=== PATIENT | male | born 1950 | race Caucasian/White ===

== ENCOUNTER → 2016-11-21 | Outpatient (CLI) | payer MEDICARE ==
--- NOTE | 2016-11-21 10:47 | CT ---
EXAMINATION TYPE: CT chest wo con DATE OF EXAM: 11/21/2016 9:52 AM COMPARISON: NONE HISTORY: Shortness of breath CT DLP: 207 mGycm, Automated exposure control for dose reduction was used. CONTRAST: None TECHNIQUE: Axial images were obtained at 1 mm thick sections at 10 mm intervals. This will limit po rtions of the examination which may not be visualized within the [id number]. Images were obtained in the prone and supine views. FINDINGS: Portion of the thyroid visualized is normal. There appears to be some mild pleural thickening which is stable in prone and supine views of the pos terior left lung base. Mild peribronchial thickening is present. Correlate for chronic bronchitis. No bronchiectasis is evident. There is some mild strandy fibrosis within the posterior left base presen t on both prone and supine views. Some mild compressive atelectasis within the dependent portion of t he lungs on supine view is present. No enlarged mediastinal or hilar adenopathy is evident. There are scattered small pretracheal lymph nodes. Some coronary artery calcification is noted. The ascending aorta diameter at the level of the main pulmonary artery is 3.2 cm. The main pulmonary artery diameter at the bifurcation is 2.[address] sections are obtained through the upper abdomen. Abdomen is essentially unremarkable. IMPRESSIONS: 1. Scarring or fibrosis within the posterior left lung base. 2. Mild pleural thickening posterior left lung base near the diaphragm. 3. Correlate for chronic bronchitis.
[2016-11-21 11:04] LABS: Basophils % (A) 0 %; CH 32.4; CHCM 34.6; Eosinophils # (A) 0.1 k/uL (0-0.7); Eosinophils % (A) 1 %; HDW 2.69; HGB 14.7 gm/dL (13.0-17.5); Luc # (Auto) 0.17; Luc % (Auto) 2; Lymphocytes # (A) 0.8 k/uL (1.0-4.8); Lymphocytes % (A) 8 %; MCH 31.4 pg (25.0-35.0); MCHC 33.4 g/dL (31.0-37.0); MCV 93.9 fL (80.0-100.0); Mean Platelet Volume 7.3; Monocytes # (A) 0.5 k/uL (0-1.0); Monocytes % (A) 5 %; Neutrophils # (A) 8.8 k/uL (1.3-7.7); Neutrophils % (A) 84 %; RBC 4.69 m/uL (4.30-5.90); RDW 13.2 % (11.5-15.5); WBC 10.5 k/uL (3.8-10.6); WBC (Perox) 10.65
[2016-11-21 11:23] LABS: ALT 31 U/L (21-72); AST 25 U/L (17-59); C Reactive Protein 11.6 mg/L (<10.0); Non-African American GFR(MDRD) >60 (>60 ml/min/1.73 sqM)
[2016-11-21 14:39] LABS: Erythrocyte Sedimentation Rate 39 mm/hr (0-15)
== END | disposition home or self-care (01) ==
LOC: RADCTMAIN 09:08
PROVIDERS: ATTEND Internal Medicine Rheumatology
DX: J84.10 Pulmonary fibrosis, unspecified (principal); M06.80 Other specified rheumatoid arthritis, unspecified site; J92.9 Pleural plaque without asbestos
CPT/HCPCS: 71250; 82565; 84450; 84460; 85025; 85652; 86140

== ENCOUNTER 2020-05-13 06:00 | Inpatient (IN) | payer MEDICARE ==
[2020-05-13] MEDS ORDERED: MORPHINE SULFATE 4 MG/ML SYRINGE IV STA (06:10)
[2020-05-13] MEDS ORDERED: SODIUM CHLORIDE 0.9% 1,000 ML IV STA (06:10)
[2020-05-13] MEDS ORDERED: SODIUM CHLORIDE 0.9% 500 ML 500 ML IV STA (06:10)
[2020-05-13] MEDS ORDERED: ONDANSETRON 4 MG/2 ML VIAL IVP STA (06:10)
--- NOTE | 2020-05-13 06:25 | ED ---
Abdominal Pain HPI - General Source: patient, RN notes reviewed Mode of arrival: ambulatory Limitations: no limitations <Larry Ortega - Last Filed: 05/13/20 07:51> <Hank Flor - Last Filed: 05/13/20 08:07> - General Chief Complaint: Abdominal Pain Stated Complaint: Lower abdominal pain Time Seen by Provider: 05/13/20 06:09 - History of Present Illness Initial Comments: 70-year-old male presents emergency Department chief complaint of left lower quadrant abdominal pain. Patient states has been increasing last few days. Patient did see PCP who placed him on ciprofloxacin and tramadol for pain control. Patient denies any known fever states that he's had some chills. Patient does admit to this nausea and dry heaving. No diarrhea no complaints patient states she's had decreased stool output no dysuria no hematuria patient's had prior hernia repair. Patient had a colonoscopy one month ago but she was told that he looked good. Patient has a chest pain or shortness of breath (Larry Ortega) - Related Data Home Medications Medication Instructions Recorded Confirmed Etanercept [Enbrel] 50 mg SQ FR 09/04/16 05/13/20 Folic Acid 1 mg PO DAILY 09/04/16 05/13/20 Simvastatin [Zocor] 20 mg PO HS 09/04/16 05/13/20 lisinopriL [Prinivil] 20 mg PO DAILY 09/04/16 05/13/20 metHOTREXate sodium [Methotrexate] 17.5 mg PO WE 09/04/16 05/13/20 Allergies Allergy/AdvReac Type Severity Reaction Status Date / Time Penicillins Allergy Rash/Hives Verified 05/13/20 08:03 Review of Systems ROS Other: All systems not noted in ROS Statement are negative. <Larry Ortega - Last Filed: 05/13/20 07:51> ROS Other: All systems not noted in ROS Statement are negative. <Hank Flor - Last Filed: 05/13/20 08:07> ROS Statement: Those systems with pertinent positive or pertinent negative responses have been documented in the HPI. Past Medical History Past Medical History: Hyperlipidemia, Rheumatoid Arthritis (RA) History of Any Multi-Drug Resistant Organisms: None Reported Past Surgical History: Hernia Repair Past Psychological History: Anxiety Smoking Status: Never smoker Past Alcohol Use History: None Reported Past Drug Use History: None Reported <Larry Ortega - Last Filed: 05/13/20 07:51> General Exam Limitations: no limitations General appearance: alert, in no apparent distress Head exam: Present: atraumatic, normocephalic, normal inspection Eye exam: Present: normal appearance, PERRL, EOMI. Absent: scleral icterus, conjunctival injection, periorbital swelling ENT exam: Present: normal exam, mucous membranes moist Neck exam: Present: normal inspection, full ROM. Absent: tenderness, meningism us, lymphadenopathy Respiratory exam: Present: normal lung sounds bilaterally. Absent: respiratory distress, wheezes, rales, rhonchi, stridor Cardiovascular Exam: Present: regular rate, normal rhythm, normal heart sounds. Absent: systolic murmur, diastolic murmur, rubs, gallop, clicks GI/Abdominal exam: Present: soft, tenderness (Moderate left lower quadrant), normal bowel sounds. Absent: distended, guarding, rebound, rigid Back exam: Absent: CVA tenderness (R), CVA tenderness (L) Neurological exam: Present: alert, oriented X3 Skin exam: Present: warm, dry, intact, normal color. Absent: rash <Larry Ortega - Last Filed: 05/13/20 07:51> Course <Hank Flor - Last Filed: 05/13/20 08:07> Vital Signs 05/13/20 05/13/20 06:02 07:01 Temperature 97.6 F 98 F Pulse Rate 82 77 Respiratory 18 17 Rate Blood Pressure 160/93 140/77 O2 Sat by Pulse 98 98 Oximetry - Reevaluation(s) Reevaluation #1: 05/13/20 08:06 PA supervision: I proceeded [id number] evaluation of the patient does present with complaints of abdominal pain left lower quadrant he was started on oral antibiotics 3 days ago for suspected diverticular disease. He states he is getting worse not better he states she's had this happen before. Patient will be admitted for inpatient treatment. I did discuss the case with Dr. Espinal. He will continue with IV antibiotics IV pain medication. (Hank Flor) Medical Decision Making - Lab Data Result diagrams: 05/13/20 06:18 05/13/20 06:18 <Larry Ortega - Last Filed: 05/13/20 07:51> - Lab Data Result diagrams: 05/13/20 06:18 05/13/20 06:18 <Hank Flor - Last Filed: 05/13/20 08:07> - Medical Decision Making CT shows evidence of diverticulitis. Patient's fell outpatient treatment on oral antibiotics. Patient pain is moderate. Patient will be admitted for IV antibiotics. Case discussed with Dr. Espinal. (Larry Ortega) - Lab Data Lab Results 05/13/20 05/13/20 05/13/20 Range/Units 06:18 06:18 06:18 WBC 10.4 (3.8-10.6) k/uL RBC 4.80 (4.30-5.90) m/uL Hgb 15.1 (13.0-17.5) gm/dL Hct 45.7 (39.0-53.0) % MCV 95.2 (80.0-100.0) fL MCH 31.5 (25.0-35.0) pg MCHC 33.1 (31.0-37.0) g/dL RDW 13.7 (11.5-15.5) % Plt Count 232 (150-450) k/uL Neutrophils % 81 % Lymphocytes % 7 % Monocytes % 6 % Eosinophils % 4 % Basophils % 1 % Neutrophils # 8.4 H (1.3-7.7) k/uL Lymphocytes # 0.7 L (1.0-4.8) k/uL Monocytes # 0.6 (0-1.0) k/uL Eosinophils # 0.4 (0-0.7) k/uL Basophils # 0.1 (0-0.2) k/uL Sodium 139 (137-145) mmol/L Potassium 4.4 (3.5-5.1) mmol/L Chloride 105 (98-107) mmol/L Carbon Dioxide 26 (22-30) mmol/L Anion Gap 8 mmol/L BUN 16 (9-20) mg/dL Creatinine 0.89 (0.66-1.25) mg/dL Est GFR (CKD-EPI)AfAm >90 (>60 ml/min/1.73 sqM) Est GFR (CKD-EPI)NonAf 86 (>60 ml/min/1.73 sqM) Glucose 117 H (74-99) mg/dL Plasma Lactic Acid Sonu (0.7-2.0) mmol/L Calcium 9.4 (8.4-10.2) mg/dL Total Bilirubin 1.2 (0.2-1.3) mg/dL AST 28 (17-59) U/L ALT 22 (4-49) U/L Alkaline Phosphatase 68 (38-126) U/L Total Protein 7.6 (6.3-8.2) g/dL Albumin 4.5 (3.5-5.0) g/dL Amylase 63 (30-110) U/L Lipase 58 (23-300) U/L Urine Color Light Yellow Urine Appearance Clear (Clear) Urine pH 7.0 (5.0-8.0) Ur Specific [place] 1.007 (1.001-1.035) Urine Protein Negative (Negative) Urine Glucose (UA) Negative (Negative) Urine Ketones Negative (Negative) Urine Blood Trace H (Negative) Urine Nitrite Negative (Negative) Urine Bilirubin Negative (Negative) Urine Urobilinogen <2.0 (<2.0) mg/dL Ur Leukocyte Esterase Negative (Negative) Urine RBC 1 (0-5) /hpf 05/13/20 Range/Units 06:18 WBC (3.8-10.6) k/uL RBC (4.30-5.90) m/uL Hgb (13.0-17.5) gm/dL Hct (39.0-53.0) % MCV (80.0-100.0) fL MCH (25.0-35.0) pg MCHC (31.0-37.0) g/dL RDW (11.5-15.5) % Plt Count (150-450) k/uL Neutrophils % % Lymphocytes % % Monocytes % % Eosinophils % % Basophils % % Neutrophils # (1.3-7.7) k/uL Lymphocytes # (1.0-4.8) k/uL Monocytes # (0-1.0) k/uL Eosinophils # (0-0.7) k/uL Basophils # (0-0.2) k/uL Sodium (137-145) mmol/L Potassium (3.5-5.1) mmol/L Chloride (98-107) mmol/L Carbon Dioxide (22-30) mmol/L Anion Gap mmol/L BUN (9-20) mg/dL Creatinine (0.66-1.25) mg/dL Est GFR (CKD-EPI)AfAm (>60 ml/min/1.73 sqM) Est GFR (CKD-EPI)NonAf (>60 ml/min/1.73 sqM) Glucose (74-99) mg/dL Plasma Lactic Acid Sonu 0.9 (0.7-2.0) mmol/L Calcium (8.4-10.2) mg/dL Total Bilirubin (0.2-1.3) mg/dL AST (17-59) U/L ALT (4-49) U/L Alkaline Phosphatase (38-126) U/L Total Protein (6.3-8.2) g/dL Albumin (3.5-5.0) g/dL Amylase (30-110) U/L Lipase (23-300) U/L Urine Color Urine Appearance (Clear) Urine pH (5.0-8.0) Ur Specific [place] (1.001-1.035) Urine Protein (Negative) Urine Glucose (UA) (Negative) Urine Ketones (Negative) Urine Blood (Negative) Urine Nitrite (Negative) Urine Bilirubin (Negative) Urine Urobilinogen (<2.0) mg/dL Ur Leukocyte Esterase (Negative) Urine RBC (0-5) /hpf Disposition <Larry Ortega - Last Filed: 05/13/20 07:51> <Hank Flor - Last Filed: 05/13/20 08:07> Clinical Impression: Acute diverticulitis, Failure of outpatient treatment Disposition: ADMITTED IP TO THIS [facility] Condition: Fair
[2020-05-13 06:30] LABS: Basophils # (A) 0.1 k/uL (0-0.2); Basophils % (A) 1 %; Eosinophils # (A) 0.4 k/uL (0-0.7); Eosinophils % (A) 4 %; HCT 45.7 % (39.0-53.0); HGB 15.1 gm/dL (13.0-17.5); Lymphocytes # (A) 0.7 k/uL (1.0-4.8); Lymphocytes % (A) 7 %; MCH 31.5 pg (25.0-35.0); MCHC 33.1 g/dL (31.0-37.0); MCV 95.2 fL (80.0-100.0); Monocytes # (A) 0.6 k/uL (0-1.0); Monocytes % (A) 6 %; Neutrophils # (A) 8.4 k/uL (1.3-7.7); Neutrophils % (A) 81 %; Platelet Count 232 k/uL (150-450); RDW 13.7 % (11.5-15.5); WBC 10.4 k/uL (3.8-10.6)
[2020-05-13 06:31] LABS: Appearance,Urine Clear (Clear); Bilirubin,Urine Negative (Negative); Blood,Urine Trace (Negative); Color,Urine Light Yellow; Glucose,Urine (UA) Negative (Negative); Ketones,Urine Negative (Negative); Leukocyte Esterase,Urine Negative (Negative); Nitrite,Urine Negative (Negative); Protein,Urine Negative (Negative); RBC,Urine 1 /hpf (0-5); Specific Gravity,Urine 1.007 (1.001-1.035); Urobilinogen,Urine <2.0 mg/dL (<2.0)
[2020-05-13 06:48] LABS: ALT 22 U/L (4-49); AST 28 U/L (17-59); African American GFR (CKD) >90 (>60 ml/min/1.73 sqM); Albumin 4.5 g/dL (3.5-5.0); Alkaline Phosphatase 68 U/L (38-126); Amylase 63 U/L (30-110); Anion Gap 8 mmol/L; Blood Urea Nitrogen 16 mg/dL (9-20); Calcium 9.4 mg/dL (8.4-10.2); Carbon Dioxide 26 mmol/L (22-30); Chloride 105 mmol/L (98-107); Glucose 117 mg/dL (74-99); Non-African American GFR(CKD) 86 (>60 ml/min/1.73 sqM); Potassium 4.4 mmol/L (3.5-5.1); Sodium 139 mmol/L (137-145); Total Bilirubin 1.2 mg/dL (0.2-1.3); Total Protein 7.6 g/dL (6.3-8.2)
--- NOTE | 2020-05-13 07:40 | CT ---
EXAMINATION TYPE: CT abdomen pelvis w con DATE OF EXAM: 05/13/2020 COMPARISON: CT chest 11/21/2016 HISTORY: 70-year-old male with lower abdominal pain. History of diverticulitis TECHNIQUE: Contiguous axial scanning of the abdomen and pelvis following administration of 100 ml Iso gato 300 IV contrast. Delayed images through the kidneys and coronal/sagittal reconstructions perform ed. CT DLP: 955.9 mGycm Automated exposure control for dose reduction was used. FINDINGS: Heart normal size without pericardial effusion. Unchanged smooth posterior left basilar pleural thickening. Some subpleural reticular changes and bola undglass probably adjacent scarring. Small hiatal hernia. No focal liver lesion or biliary ductal dilatation. Portal venous system is patent. Gallbladder is mildly hydropic and 4.1 cm wide but without any surrounding inflammatory change. 2.7 x 1.9 cm small oval nodule of the right adrenal gland is unchanged from 2017 suggesting a benign adrenal adenoma. Diffuse thickening of the left adrenal gland is also unchanged. Symmetric uptake and excretion of contrast from the kidneys. Spleen and pancreas appear within normal limits. Scattered [id number] atherosclerotic calcifications infrarenal abdominal aorta and iliac arteri es. Small fatty umbilical hernia. Mildly prominent fluid-filled small bowel loops left side of the abdomen measuring up to 2.5 cm. No d ilated small bowel, free fluid, or free air. Mild stool burden. There is diverticular change along the descending and sigmoid colon, greatest gabriel g the proximal to mid sigmoid. There is wall thickening and surrounding mild to moderate inflammatory fat stranding at the lower descending colon, axial image 52. The appearance of some annular thickening along the mid sigmoid colon, axial image 58 and 59. Bladder is urine distended. Prostate gland measures 4.5 cm wide. High riding right testicle. Left-viktoria ed pelvic phlebolith. No abnormal fluid collection the pelvis or pelvic lymphadenopathy. Bones: Degenerative changes at the hips and SI joints. Advanced degenerative disc disease and hypertr ophic facet arthropathy throughout the lumbar spine. IMPRESSION: 1. LEFT-SIDED COLONIC DIVERTICULOSIS WITH EXAM POSITIVE FOR ACUTE DIVERTICULITIS AT THE LEVEL OF THE LOWER DESCENDING COLON. MILD TO MODERATE ASSOCIATED INFLAMMATION. NO EVIDENCE FOR ABSCESS OR FREE AIR . 2. THE APPEARANCE OF SOME ANNULAR THICKENING ALONG THE MID SIGMOID COLON. THIS CAN BE SEEN WITH CHRON IC DIVERTICULITIS. DIRECT VISUALIZATION AFTER SUCCESSFUL TREATMENT TO EXCLUDE UNDERLYING NEOPLASM. 3. ASSOCIATED MILD SMALL BOWEL ILEUS. 4. MILDLY HYDROPIC GALLBLADDER PROBABLY RELATES TO FASTING STATE. IF RIGHT UPPER QUADRANT PAIN OR CON CERN FOR EARLY ACUTE CHOLECYSTITIS, FOLLOW-UP ULTRASOUND OR HIDA SCAN. 5. CHRONIC PLEURAL THICKENING AT THE LEFT BASE, SMALL HIATAL HERNIA, UNCHANGED 2.7 CM BENIGN RIGHT AD RENAL ADENOMA, AND ADVANCED DEGENERATIVE CHANGES THROUGHOUT THE LUMBAR SPINE.
[2020-05-13] MEDS ORDERED: metroNIDAZOLE-NS PMX 500 MG in SALINE 1 100ML.BAG IVPB STA (07:50)
[2020-05-13] MEDS ORDERED: LEVOFLOXACIN 750MG-D5W PMX 750 MG in DEXTROSE/WATER 1 150ML.BAG IVPB STA (07:50)
[2020-05-13] MEDS ORDERED: KETOROLAC 15 MG/ML 1 ML VIAL IVP STA (07:51)
[2020-05-13] MEDS ORDERED: MORPHINE SULFATE 4 MG/ML SYRINGE IV PRN (07:52)
[2020-05-13] MEDS ORDERED: NALOXONE 0.4 MG/ML 1 ML VIAL IV PRN (07:52)
[2020-05-13] MEDS ORDERED: ACETAMINOPHEN TAB 325 MG TAB PO PRN (07:52)
[2020-05-13] MEDS ORDERED: KETOROLAC 15 MG/ML 1 ML VIAL IVP PRN (07:52)
[2020-05-13] MEDS ORDERED: ONDANSETRON 4 MG/2 ML VIAL IVP PRN (07:52)
[2020-05-13] MEDS: SODIUM CHLORIDE 0.9% 1,000 ML IV SCH ×2 (09:58→22:39)
[2020-05-13] MEDS: METOPROLOL SUCCINATE (ER) 25 MG TAB.ER.24H PO SCH (12:18)
[2020-05-13] MEDS: amLODIPine 5 MG TAB PO SCH (12:19)
[2020-05-13] MEDS: ASPIRIN 81 MG PO SCH (12:19)
[2020-05-13] MEDS: FOLIC ACID 1 MG TAB PO SCH (12:19)
[2020-05-13] MEDS: lisinopriL 20 MG TAB PO SCH (12:19)
[2020-05-13] MEDS: CLOPIDOGREL 75 MG TAB PO SCH (12:19)
[2020-05-13] MEDS: FAMOTIDINE 20 MG TAB PO SCH ×2 (12:19→21:58)
[2020-05-13] MEDS: ENOXAPARIN 40 MG/0.4 ML SYRINGE SQ SCH (12:19)
[2020-05-13] MEDS: BUDESONIDE 0.5 MG/2 ML NEBU INHALATION SCH ×2 (15:16→19:39)
--- NOTE | 2020-05-13 16:20 | P.HPIM ---
History of Present Illness H&P Date: 05/13/20 Chief Complaint: abdominal pain History of presenting complaint: This is a pleasant 70-year-old patient of Dr. Tony Clark. Chronic stable medical conditions include hyperlipidemia, rheumatoid arthritis, anxiety, hypertension, coronary artery disease with stent over 3 years ago. Patient is put on Enbrel and methotrexate. Patient recently had a colonoscopy by Dr. April Woodruff mma was found to have diverticulosis. For about 10 days patient been having increasing left lower quadrant abdominal pain. No fever no chills. Diagnosed with diverticulitis by his family doctor was put on antibiotics. Has been having daily bowel movements. Has had about 7 days of antibiotics. Pain is progressively getting worse decided to come in. Computed tomography scan of the abdomen does show acute out of classes. No abscess or perforation. Patient's had at least 2 more attacks of the same in the past. Review of systems: GEN.: None EYES: None HEENT: None NECK: None RESPIRATORY: None CARDIOVASCULAR: None GASTROINTESTINAL: As above GENITOURINARY: None MUSCULOSKELETAL: Joint pains LYMPHATICS: None HEMATOLOGICAL: None PSYCHIATRY: None NEUROLOGICAL: None Past medical history to include: Coronary artery disease with stent in 2017, hypertension, hyperlipidemia, rheumatoid arthritis, diverticulitis Social history: Patient is employed at [employer], , smoked a pack a day for close to 40 years stopped about 10 years ago. No alcohol Physical examination: VITAL SIGNS: 97.6, 82, 18, 140 with 77, 98% room air GENERAL: BMI 24.3, laying in bed slightly anxious. EYES: Pupils equal. Conjunctiva normal. HEENT: External appearance of nose and ears normal, oral cavity grossly normal. NECK: JVD not raised; masses not palpable. HEART: First and second heart sounds are normal; no edema. LUNGS: Respiratory rate normal; clear to auscultation. ABDOMEN: Soft, left lower quadrant tenderness, no guarding rigidity, liver spleen not palpable, no masses palpable. PSYCH: Alert and oriented x3; mood and affect normal. MUSCULAR skeletal: Arthritis findings in the hands NEUROLOGICAL: Cranial nerves grossly intact; no facial asymmetry, power and sensation grossly intact. LYMPHATICS: No lymph nodes palpable in the axilla and neck INVESTIGATIONS, reviewed in the clinical context: White count 10.4 hemoglobin 15.1 increased neutrophils potassium 4.4 creatinine 0.89 Computed tomography scan of the abdomen pelvis-diverticular findings in the descending and sigmoid colon with surrounding mild to moderate inflammatory changes at the lower descending colon. No obvious evidence of abscess or free air. Assessment: -Acute sigmoid diverticulitis, with patient already having had to at least prior attacks. Patient been on oral antibiotics patient has failed the same. Patient's methotrexate and Enbrel both will be held -Chronic rheumatoid arthritis -Coronary artery disease prior history of stent in 2017 -Hypertension -Hyperlipidemia -Colonic diverticulosis -Anxiety not otherwise specified Plan: Patient be put on IV Zosyn and Flagyl IV fluids. Made nothing by mouth except for ice chips and home medications to continue. Since patient last stent was 3 years ago patient's Plavix could be held for right now. Care was discussed with the patient question also. Consult general surgery. Discussed with the patient of possibility of surgery down the road. Past Medical History Past Medical History: Hyperlipidemia, Rheumatoid Arthritis (RA) History of Any Multi-Drug Resistant Organisms: None Reported Past Surgical History: Hernia Repair Past Psychological History: Anxiety Smoking Status: Never smoker Past Alcohol Use History: None Reported Past Drug Use History: None Reported - Past Family History Father Family Medical History: Dementia Additional Family Medical History / Comment(s): Father of dementia. Mother Family Medical History: Cancer, Congestive Heart Failure (CHF) Additional Family Medical History / Comment(s): Colon cancer. Mother lived to be 84 yrs old. Medications and Allergies Home Medications Medication Instructions Recorded Confirmed Type Etanercept [Enbrel] 50 mg SQ FR 09/04/16 05/13/20 History Folic Acid 1 mg PO DAILY 09/04/16 05/13/20 History Simvastatin [Zocor] 20 mg PO HS 09/04/16 05/13/20 History lisinopriL [Prinivil] 20 mg PO DAILY 09/04/16 05/13/20 History metHOTREXate sodium [Methotrexate] 17.5 mg PO WE 09/04/16 05/13/20 History Aspirin EC [Ecotrin Low Dose] 81 mg PO DAILY 05/13/20 05/13/20 History Budesonide [Pulmicort] 0.5 mg INHALATION RT-BID 05/13/20 05/13/20 History Clopidogrel Bisulfate [Plavix] 75 mg PO DAILY 05/13/20 05/13/20 History Famotidine [Pepcid] 20 mg PO BID 05/13/20 05/13/20 History Metoprolol Succinate (ER) [Toprol 25 mg PO DAILY 05/13/20 05/13/20 History Xl] amLODIPine [Norvasc] 5 mg PO DAILY 05/13/20 05/13/20 History Allergies Allergy/AdvReac Type Severity Reaction Status Date / Time Penicillins Allergy Rash/Hives Verified 05/13/20 08:03 Physical Exam Vitals: Vital Signs Temp Pulse Pulse Resp BP BP Pulse Ox 05/13/20 09:51 98.1 F 66 16 120/61 94 L 05/13/20 08:10 98.3 F 78 18 127/70 97 05/13/20 07:01 98 F 77 17 140/77 98 05/13/20 06:02 97.6 F 82 18 160/93 98 Intake and Output 05/12/20 05/13/20 05/13/20 22:59 06:59 14:59 Other: Weight 72.575 kg Results CBC & Chem 7: 05/13/20 06:18 05/13/20 06:18 Labs: Abnormal Lab Results - Last 24 Hours (Table) 05/13/20 05/13/20 05/13/20 Range/Units 06:18 06:18 06:18 Neutrophils # 8.4 H (1.3-7.7) k/uL Lymphocytes # 0.7 L (1.0-4.8) k/uL Glucose 117 H (74-99) mg/dL Urine Blood Trace H (Negative)
[2020-05-13] MEDS ORDERED: ENOXAPARIN 40 MG/0.4 ML SYRINGE SQ SCH (16:30)
[2020-05-13] MEDS: metroNIDAZOLE-NS PMX 500 MG in SALINE 1 100ML.BAG IVPB SCH ×2 (16:46→23:11)
[2020-05-13] MEDS ORDERED: CEFEPIME 1 GM in SODIUM CHLORIDE 0.9% 50 ML IVPB ONE (18:00)
[2020-05-13] MEDS: ATORVASTATIN 10 MG TAB PO SCH (21:58)
[2020-05-14] MEDS: CEFEPIME 1 GM in SODIUM CHLORIDE 0.9% 50 ML IVPB SCH ×2 (05:21→18:11)
[2020-05-14 07:41] LABS: HCT 40.2 % (39.0-53.0); HGB 13.7 gm/dL (13.0-17.5); MCH 33.3 pg (25.0-35.0); MCHC 34.2 g/dL (31.0-37.0); MCV 97.4 fL (80.0-100.0); Mean Platelet Volume 7.3; Platelet Count 174 k/uL (150-450); RBC 4.13 m/uL (4.30-5.90); RDW 13.7 % (11.5-15.5); WBC 5.6 k/uL (3.8-10.6)
[2020-05-14] MEDS: BUDESONIDE 0.5 MG/2 ML NEBU INHALATION SCH ×2 (08:07→20:07)
[2020-05-14] MEDS: metroNIDAZOLE-NS PMX 500 MG in SALINE 1 100ML.BAG IVPB SCH ×3 (08:55→23:38)
[2020-05-14] MEDS: ASPIRIN 81 MG PO SCH (08:58)
[2020-05-14] MEDS: CLOPIDOGREL 75 MG TAB PO SCH (08:58)
[2020-05-14] MEDS: lisinopriL 20 MG TAB PO SCH (08:58)
[2020-05-14] MEDS: ENOXAPARIN 40 MG/0.4 ML SYRINGE SQ SCH (08:58)
[2020-05-14] MEDS: FAMOTIDINE 20 MG TAB PO SCH ×2 (08:58→20:42)
[2020-05-14] MEDS: FOLIC ACID 1 MG TAB PO SCH (08:58)
[2020-05-14] MEDS: METOPROLOL SUCCINATE (ER) 25 MG TAB.ER.24H PO SCH (08:58)
[2020-05-14] MEDS: amLODIPine 5 MG TAB PO SCH (08:58)
[2020-05-14] MEDS ORDERED: LEVOFLOXACIN 750MG-D5W PMX 750 MG in DEXTROSE/WATER 1 150ML.BAG IVPB SCH (09:00)
[2020-05-14] MEDS: SODIUM CHLORIDE 0.9% 1,000 ML IV SCH ×2 (11:27→23:39)
[2020-05-14 11:42] VITALS: BMI 24.3
--- NOTE | 2020-05-14 11:55 | P.GSCN ---
History of Present Illness Consult date: 05/14/20 History of present illness: CHIEF COMPLAINT: Left lower quadrant abdominal pain HISTORY OF PRESENT ILLNESS: This is a 70-year-old male with a known history of diverticulosis, hyperlipidemia, hypertension, rheumatoid arthritis, coronary artery disease previous cardiac testing about 3 years ago. He is on aspirin and Plavix. Patient reports about a week ago he started having left lower quadrant abdominal pain. He went to see his primary care physician who did place him on Cipro. Patient took 2 days of antibiotics with no significant improvement improvement in his abdominal pain. He does report eating a lot of popcorn couple weeks ago. He denies any nausea or vomiting. Reports having bowel movements. Denies any fever chills or sweats. Patient had computed tomography scan of abdomen and pelvis showing left-sided colonic diverticulosis with acute diverticulitis at the level of the lower descending colon. No evidence of abscess or free air. We've been consulted in regards to patient's diverticulitis. Patient did have a colonoscopy [address] Medina per patient there is no evidence of any polyps. And he does have known diverticulosis. PAST MEDICAL HISTORY: See list. PAST SURGICAL HISTORY: See list. MEDICATIONS: See list. ALLERGIES: See list. SOCIAL HISTORY: No illicit drug use. REVIEW OF SYSTEMS: CONSTITUTIONAL: Denies fever or chills. HEENT: Denies blurred vision, vision changes, or eye pain. Denies hemoptysis ENDOCRINE: Denies heat or cold intolerance. CARDIOVASCULAR: Denies chest pain or pressure. RESPIRATORY: No shortness of breath. GASTROINTESTINAL: Denies abdominal pain. Denies nausea or vomiting. NEURO: Denies history of seizures. PSYCH: No depression or suicidal ideation HEMATOLOGIC: Denies bleeding disorders. LYMPHATIC: The patient denies any lumps and bumps around the neck. GENITOURINARY: Denies any blood in urine or increased urinary frequency. MUSCULOSKELETAL: Denies myalgias. Denies joint swelling. Denies decreased range of motion beyond patients baseline. SKIN: Denies pruitis. Denies rash. PHYSICAL EXAM: VITAL SIGNS: Reviewed GENERAL: Well-developed in no acute distress. HEENT: No sclera icterus. Extraocular movements grossly intact. Moist buccal mucosa. Head is atraumatic, normocephalic. Hears conversational speech. No nasal drainage. NECK: Supple without lymphadenopathy. CHEST: Non-labored respirations and equal bilateral excursions. CARDIOVASCULAR: Palpable 2+ radial pulses. ABDOMEN: Soft. Nondistended. Nontender MUSCULOSKELETAL: No clubbing or cyanosis. NEUROLOGIC: No focal or lateralizing signs. Cranial nerves II through XII grossly intact. PSYCH: Appropriate affect. Alert and oriented to person, place and time. SKIN: Well perfused. Good skin turgor. LABORATORY DATA: WBC 5.6 hemoglobin 13.7 platelets 174 lipase 58 ALT 22 AST 28 IMAGING: Computed tomography scan of the abdomen and pelvis with left-sided colonic diverticulosis with exam positive for acute diverticulitis at the level of the lower descending colon. Mild to moderate associated inflammation. No evidence for abscess or free air. The appearance of some annular thickening along the mid sigmoid colon. This can be seen with chronic diverticulitis. Mildly hypertrophic gallbladder probably relates to fasting state. Small hiatal hernia unchanged 2.7 cm. ASSESSMENT: 1. Acute diverticulitis of the lower descending colon likely secondary to eating popcorn 2. History of diverticulosis 3. Essential hypertension 4. Coronary artery disease with cardiac stent history 5. Rheumatoid arthritis 6. Hyperlipidemia PLAN: -Continue antibiotics -Start patient on clear liquid diet. Patient to advance diet slowly. He is continue on a liquid diet over the weekend. He can start eating a regular food such as sandwiches on Sunday. -Patient to follow-up with Dr. Pacheco in the office on May 27 Physician Hiv/Aids Care Nurse note has been reviewed by physician. Signing provider agrees with the documented findings, assessment, and plan of care. Past Medical History Past Medical History: Hyperlipidemia, Rheumatoid Arthritis (RA) Additional Past Medical History / Comment(s): Rheumatoid arthritis with chronic generalized pain, diverticulitis. History of Any Multi-Drug Resistant Organisms: None Reported Past Surgical History: Hernia Repair Additional Past Surgical History / Comment(s): Colonoscopies, PCI with stent at [facility] in 2017, bilateral inguinal hernia repairs. Past Anesthesia/Blood Transfusion Reactions: No Reported Reaction Date of Last Stent Placement:: 2016 Past Psychological History: Anxiety Smoking Status: Never smoker Past Alcohol Use History: None Reported Past Drug Use History: None Reported - Past Family History Father Family Medical History: Dementia Additional Family Medical History / Comment(s): Father of dementia. Mother Family Medical History: Cancer, Congestive Heart Failure (CHF) Additional Family Medical History / Comment(s): Colon cancer. Mother lived to be 84 yrs old. Medications and Allergies Home Medications Medication Instructions Recorded Confirmed Type Etanercept [Enbrel] 50 mg SQ FR 09/04/16 05/13/20 History Folic Acid 1 mg PO DAILY 09/04/16 05/13/20 History Simvastatin [Zocor] 20 mg PO HS 09/04/16 05/13/20 History lisinopriL [Prinivil] 20 mg PO DAILY 09/04/16 05/13/20 History metHOTREXate sodium [Methotrexate] 17.5 mg PO WE 09/04/16 05/13/20 History Aspirin EC [Ecotrin Low Dose] 81 mg PO DAILY 05/13/20 05/13/20 History Budesonide [Pulmicort] 0.5 mg INHALATION RT-BID 05/13/20 05/13/20 History Clopidogrel Bisulfate [Plavix] 75 mg PO DAILY 05/13/20 05/13/20 History Famotidine [Pepcid] 20 mg PO BID 05/13/20 05/13/20 History Metoprolol Succinate (ER) [Toprol 25 mg PO DAILY 05/13/20 05/13/20 History Xl] amLODIPine [Norvasc] 5 mg PO DAILY 05/13/20 05/13/20 History Allergies Allergy/AdvReac Type Severity Reaction Status Date / Time Penicillins Allergy Rash/Hives Verified 05/13/20 08:03 Surgical - Exam Vital Signs Temp Pulse Resp BP Pulse Ox 97.6 F 82 18 160/93 98 05/13/20 06:02 05/13/20 06:02 05/13/20 06:02 05/13/20 06:02 05/13/20 06:02 Results - Labs 05/14/20 07:10 05/13/20 06:18 Abnormal Lab Results - Last 24 Hours (Table) 05/14/20 Range/Units 07:10 RBC 4.13 L (4.30-5.90) m/uL Microbiology - Last 24 Hours (Table) 05/13/20 08:16 Blood Culture - Preliminary Blood No Growth after 24 hours
--- NOTE | 2020-05-14 20:20 | P.PN ---
Progress Note - Text Progress Note Date: 05/14/20 Chief Complaint: abdominal pain History of presenting complaint: This is a pleasant 70-year-old patient of Dr. Tony Clark. Chronic stable medical conditions include hyperlipidemia, rheumatoid arthritis, anxiety, hypertension, coronary artery disease with stent over 3 years ago. Patient is put on Enbrel and methotrexate. Patient recently had a colonoscopy by Dr. April Medina was found to have diverticulosis. For about 10 days patient been having increasing left lower quadrant abdominal pain. No fever no chills. Diagnosed with diverticulitis by his family doctor was put on antibiotics. Has been having daily bowel movements. Has had about 7 days of antibiotics. Pain is progressively getting worse decided to come in. Computed tomography scan of the abdomen does show acute out of classes. No abscess or perforation. Patient's had at least 2 more attacks of the same in the past. Admitted with acute sigmoid diverticulitis. Started on IV cefepime and Flagyl. Initially made nothing by mouth. Today-feeling better. No nausea vomiting. Sitting up in a chair. On IV antibiotics. Started on clear liquids this morning. Review of systems: Was done for constitutional, cardiovascular, GI, pulmonary. relevant finding as above Active Medications Acetaminophen (Tylenol Tab) 650 mg PO Q6HR PRN PRN Reason: Mild Pain or Fever > 100.5 Amlodipine Besylate (Norvasc) 5 mg PO DAILY [facility] Last Admin: 05/14/20 08:58 Dose: 5 mg Documented by: Aspirin (Aspirin) 81 mg PO DAILY [facility] Last Admin: 05/14/20 08:58 Dose: 81 mg Documented by: Atorvastatin Calcium (Lipitor) 10 mg PO HS [facility] Last Admin: 05/13/20 21:58 Dose: 10 mg Documented by: Budesonide (Pulmicort) 0.5 mg INHALATION RT-BID [facility] Last Admin: 05/14/20 20:07 Dose: 0.5 mg Documented by: Clopidogrel Bisulfate (Plavix) 75 mg PO DAILY [facility] Last Admin: 05/14/20 08:58 Dose: 75 mg Documented by: Enoxaparin Sodium (Lovenox) 40 mg SQ DAILY [facility] Last Admin: 05/14/20 08:58 Dose: 40 mg Documented by: Famotidine (Pepcid) 20 mg PO BID [facility] Last Admin: 05/14/20 08:58 Dose: 20 mg Documented by: Folic Acid (Folic Acid) 1 mg PO DAILY [facility] Last Admin: 05/14/20 08:58 Dose: 1 mg Documented by: Metronidazole 500 mg/ IV (Solution) 100 mls @ 100 mls/hr IVPB Q8HR [facility] Last Admin: 05/14/20 16:18 Dose: 100 mls/hr Documented by: Sodium Chloride (Saline 0.9%) 1,000 mls @ 75 mls/hr IV .[id number] [facility] Last Admin: 05/14/20 11:27 Dose: 75 mls/hr Documented by: Cefepime HCl 1 gm/ Sodium (Chloride) 50 mls @ 12.5 mls/hr IVPB Q12H [facility] Last Admin: 05/14/20 18:11 Dose: 12.5 mls/hr Documented by: Ketorolac Tromethamine (Toradol) 15 mg IVP Q6HR PRN PRN Reason: Moderate Pain Stop: 05/16/20 07:53 Lisinopril (Zestril) 20 mg PO DAILY [facility] Last Admin: 05/14/20 08:58 Dose: 20 mg Documented by: Metoprolol Succinate (Toprol Xl) 25 mg PO DAILY [facility] Last Admin: 05/14/20 08:58 Dose: 25 mg Documented by: Morphine Sulfate (Morphine Sulfate (Inj)) 4 mg IV Q4HR PRN PRN Reason: Severe Pain Naloxone HCl (Narcan) 0.2 mg IV Q2M PRN PRN Reason: Opioid Reversal Ondansetron HCl (Zofran) 4 mg IVP Q8HR PRN PRN Reason: Nausea And Vomiting Physical examination: VITAL SIGNS: 97.9, 64, 17, 121/63, 96% room air GENERAL: Sitting on a chair, comfortable EYES: Pupils equal. Conjunctiva normal. HEENT: External appearance of nose and ears normal, oral cavity grossly normal. NECK: JVD not raised; masses not palpable. HEART: First and second heart sounds are normal; no edema. LUNGS: Respiratory rate normal; clear to auscultation. ABDOMEN: Soft, minimal left lower quadrant tenderness, no guarding rigidity, liver spleen not palpable, no masses palpable. PSYCH: Alert and oriented x3; mood and affect normal. MUSCULAR skeletal: Arthritis findings in the hands INVESTIGATIONS, reviewed in the clinical context: White count 5.6 hemoglobin 13.7 Previous testing White count 10.4 hemoglobin 15.1 increased neutrophils potassium 4.4 creatinine 0.89 Computed tomography scan of the abdomen pelvis-diverticular findings in the descending and sigmoid colon with surrounding mild to moderate inflammatory changes at the lower descending colon. No obvious evidence of abscess or free air. Assessment: -Acute sigmoid diverticulitis, with patient already having had to at least prior attacks. Patient been on oral antibiotics patient has failed the same. Patient's methotrexate and Enbrel both will be held-improving -Chronic rheumatoid arthritis -Coronary artery disease prior history of stent in 2017 -Hypertension -Hyperlipidemia -Colonic diverticulosis -Anxiety not otherwise specified Plan: Continue with IV cefepime and Flagyl. Advance to full liquid. Diet to be advanced as tolerated.. Discussed with the patient. Hopefully discharge in next 24 hours.
[2020-05-14] MEDS: ATORVASTATIN 10 MG TAB PO SCH (20:42)
[2020-05-15] MEDS: CEFEPIME 1 GM in SODIUM CHLORIDE 0.9% 50 ML IVPB SCH (06:22)
[2020-05-15 07:20] LABS: Glucose,Whole Blood 100 mg/dL (75-99)
[2020-05-15 07:24] VITALS: BP 168/81; RESP 14; TEMP 97.9
[2020-05-15] MEDS: BUDESONIDE 0.5 MG/2 ML NEBU INHALATION SCH (07:44)
[2020-05-15 07:58] VITALS: PULSE 76
[2020-05-15] MEDS: lisinopriL 20 MG TAB PO SCH (08:22)
[2020-05-15] MEDS: CLOPIDOGREL 75 MG TAB PO SCH (08:22)
[2020-05-15] MEDS: amLODIPine 5 MG TAB PO SCH (08:22)
[2020-05-15] MEDS: METOPROLOL SUCCINATE (ER) 25 MG TAB.ER.24H PO SCH (08:22)
[2020-05-15] MEDS: FOLIC ACID 1 MG TAB PO SCH (08:22)
[2020-05-15] MEDS: FAMOTIDINE 20 MG TAB PO SCH (08:22)
[2020-05-15] MEDS: metroNIDAZOLE-NS PMX 500 MG in SALINE 1 100ML.BAG IVPB SCH (08:22)
[2020-05-15] MEDS: ASPIRIN 81 MG PO SCH (08:22)
[2020-05-15] MEDS: ENOXAPARIN 40 MG/0.4 ML SYRINGE SQ SCH (08:23)
--- NOTE | 2020-05-15 12:20 | P.PN ---
Subjective Progress Note Date: 05/15/20 Principal diagnosis: Acute diverticulitis Patient doing well today. No labs from today. He is tolerating his diet. He is having bowel function. He would like to go home. Objective - Vital Signs Vital signs: Vital Signs Temp 97.9 F 05/15/20 07:23 Pulse 76 05/15/20 07:55 Resp 14 05/15/20 07:23 BP 168/81 05/15/20 07:23 Pulse Ox 97 05/15/20 07:23 Intake & Output 05/14/20 05/15/20 05/15/20 18:59 06:59 18:59 Intake Total 600 Balance 600 Weight 72.575 kg Intake: IV 450 Sodium Chloride 0.9% 1, 450 000 ml @ 75 mls/hr IV . [id number] [facility] Rx#:[id number] Intake, IV Titration 150 Amount Cefepime 1 gm In Sodium 50 Chloride 0.9% 50 ml @ 100 mls/hr IVPB ONCE ONE Rx# :[id number] metroNIDAZOLE-NS PMX 500 100 mg In Saline 1 100ml.bag @ 100 mls/hr IVPB Q8HR [facility] Rx#:[id number] Other: Voiding Method Toilet Toilet # Voids 2 - Exam Abdomen: Soft, nontender, nondistended - Labs CBC & Chem 7: 05/14/20 07:10 05/13/20 06:18 Labs: Abnormal Lab Results - Last 24 Hours (Table) 05/15/20 Range/Units 07:17 POC Glucose (mg/dL) 100 H (75-99) mg/dL Microbiology - Last 24 Hours (Table) 05/13/20 08:16 Blood Culture - Preliminary Blood No Growth after 48 hours Assessment and Plan (1) Acute diverticulitis Narrative/Plan: Clinically patient improving. Tolerating diet. May discharge on oral antibiotics. Follow-up outpatient. Current Visit: Yes Status: Acute Code(s): K57.92 - DVTRCLI OF INTEST, PART UNSP, W/O PERF OR ABSCESS W/O BLEED SNOMED Code(s): 083328181
--- NOTE | 2020-05-15 21:02 | P.DS ---
Providers Date of admission: 05/13/20 07:50 Expected date of discharge: 05/15/20 Attending physician: Dallas Espinal Consults: 05/13/20 16:21 Consult Physician Routine Consulting Provider: Ana Pacheco Consult Reason/Comments: acute diverticulitis Do you want consulting provider notified?: Yes Primary care physician: Tony Clark MD Hospital Course: Chief Complaint: abdominal pain History of presenting complaint: This is a pleasant 70-year-old patient of Dr. Tony Clark. Chronic stable medical conditions include hyperlipidemia, rheumatoid arthritis, anxiety, hypertension, coronary artery disease with stent over 3 years ago. Patient is put on Enbrel and methotrexate. Patient recently had a colonoscopy by Dr. April Medina was found to have diverticulosis. For about 10 days patient been having increasing left lower quadrant abdominal pain. No fever no chills. Diagnosed with diverticulitis by his family doctor was put on antibiotics. Has been having daily bowel movements. Has had about 7 days of antibiotics. Pain is progressively getting worse decided to come in. Computed tomography scan of the abdomen does show acute out of classes. No abscess or perforation. Patient's had at least 2 more attacks of the same in the past. Admitted with acute sigmoid diverticulitis. Started on IV cefepime and Flagyl. Initially made nothing by mouth. Today-patient tolerated Augmentin this morning. No further pain. No nausea vomiting. Had bowel movement. Up and about. Care was discussed at length with her. Medications follow-up diet etc. was discussed. Possibility of surgery was also discussed. Will follow up with Dr. Cabrera as an outpatient. Patient to continue to hold methotrexate and Enbrel until follow-up with his hand assembler in a week's time. Discussion and discharge planning more than 35 minutes Consultation: Dr. Cabrera from general surgery Physical examination: VITAL SIGNS: 97.9, 14, 80, 09/25/1980, 97% room air GENERAL: Propped up comfortable EYES: Pupils equal. Conjunctiva normal. HEENT: External appearance of nose and ears normal, oral cavity grossly normal. NECK: JVD not raised; masses not palpable. HEART: First and second heart sounds are normal; no edema. LUNGS: Respiratory rate normal; clear to auscultation. ABDOMEN: Soft, no tenderness, no guarding rigidity, liver spleen not palpable, no masses palpable. PSYCH: Alert and oriented x3; mood and affect normal. MUSCULAR skeletal: Arthritis findings in the hands INVESTIGATIONS, reviewed in the clinical context: White count 5.6 hemoglobin 13.7 Previous testing White count 10.4 hemoglobin 15.1 increased neutrophils potassium 4.4 creatinine 0.89 Computed tomography scan of the abdomen pelvis-diverticular findings in the descending and sigmoid colon with surrounding mild to moderate inflammatory changes at the lower descending colon. No obvious evidence of abscess or free air. Assessment: -Acute sigmoid diverticulitis, with patient already having had to at least 2 prior attacks. Failed outpatient antibiotics.. Patient's methotrexate and Enbrel both will be held-improving -Chronic rheumatoid arthritis -Coronary artery disease prior history of stent in 2017 -Hypertension -Hyperlipidemia -Colonic diverticulosis -Anxiety not otherwise specified Disposition: Home Patient Condition at Discharge: Stable Plan - Discharge Summary Discharge Rx Participant: No New Discharge Prescriptions: New metroNIDAZOLE [Flagyl] 500 mg PO QID #40 tab Levofloxacin [Levaquin] 750 mg PO DAILY #10 tab Continue Simvastatin [Zocor] 20 mg PO HS metHOTREXate sodium [Methotrexate] 17.5 mg PO WE lisinopriL [Prinivil] 20 mg PO DAILY Folic Acid 1 mg PO DAILY Etanercept [Enbrel] 50 mg SQ FR Metoprolol Succinate (ER) [Toprol XL] 25 mg PO DAILY Clopidogrel Bisulfate [Plavix] 75 mg PO DAILY Budesonide [Pulmicort] 0.5 mg INHALATION RT-BID Aspirin EC [Ecotrin Low Dose] 81 mg PO DAILY amLODIPine [Norvasc] 5 mg PO DAILY Famotidine [Pepcid] 20 mg PO BID Discharge Medication List Etanercept [Enbrel] 50 mg SQ FR 09/04/16 [History] Folic Acid 1 mg PO DAILY 09/04/16 [History] Simvastatin [Zocor] 20 mg PO HS 09/04/16 [History] lisinopriL [Prinivil] 20 mg PO DAILY 09/04/16 [History] metHOTREXate sodium [Methotrexate] 17.5 mg PO WE 09/04/16 [History] Aspirin EC [Ecotrin Low Dose] 81 mg PO DAILY 05/13/20 [History] Budesonide [Pulmicort] 0.5 mg INHALATION RT-BID 05/13/20 [History] Clopidogrel Bisulfate [Plavix] 75 mg PO DAILY 05/13/20 [History] Famotidine [Pepcid] 20 mg PO BID 05/13/20 [History] Metoprolol Succinate (ER) [Toprol XL] 25 mg PO DAILY 05/13/20 [History] amLODIPine [Norvasc] 5 mg PO DAILY 05/13/20 [History] Levofloxacin [Levaquin] 750 mg PO DAILY #10 tab 05/15/20 [Rx] metroNIDAZOLE [Flagyl] 500 mg PO QID #40 tab 05/15/20 [Rx] Follow up Appointment(s)/Referral(s): Tony Clark MD [Primary Care Provider] - 1-2 days Ana Pacheco MD [STAFF PHYSICIAN] - 05/27/20 Archana Stokes DO [REFERRING] - 10 Days Patient Instructions/Handouts: Metronidazole (By mouth), Levofloxacin (By mouth), Diverticulitis (DC), Soft Diet (DC), Diet for Stomach Ulcers and Gastritis (ED), Full Liquid Diet (DC) Activity/Diet/Wound Care/Special Instructions: hold enbrel and methotrexate till 2 weeks full liquid diet advance to soft bland cbc/cmp - 5 days Discharge Disposition: HOME SELF-CARE
== END 2020-05-15 13:45 | disposition home or self-care (01) | DRG 392 ==
LOC: EC 06:00 → 6NMEDSUR 07:50
PROVIDERS: ADMIT Hospitalist; ATTEND Hospitalist
DX: K57.32 Diverticulitis of large intestine without perforation or abscess without bleeding (principal); I25.10 Atherosclerotic heart disease of native coronary artery without angina pectoris; I10 Essential (primary) hypertension; F41.9 Anxiety disorder, unspecified; E78.5 Hyperlipidemia, unspecified; M06.9 Rheumatoid arthritis, unspecified; F17.200 Nicotine dependence, unspecified, uncomplicated; Z79.899 Other long term (current) drug therapy; Z88.0 Allergy status to penicillin; Z98.890 Other specified postprocedural states; Z95.5 Presence of coronary angioplasty implant and graft; Z82.49 Family history of ischemic heart disease and other diseases of the circulatory system; Z80.0 Family history of malignant neoplasm of digestive organs; Z81.8 Family history of other mental and behavioral disorders; Z79.02 Long term (current) use of antithrombotics/antiplatelets; Z79.82 Long term (current) use of aspirin
CPT/HCPCS: 36415; 74177; 80053; 81001; 82150; 83605; 83690; 85025; 85027; 87040; 94640; 96361; 96374; 96375; 99285

== ENCOUNTER → 2021-02-01 | Outpatient (CLI) | payer MEDICARE ==
[2021-02-01 12:01] LABS: African American GFR (CKD) >90 (>60 ml/min/1.73 sqM); Blood Urea Nitrogen 12 mg/dL (9-20); Non-African American GFR(CKD) 90 (>60 ml/min/1.73 sqM)
--- NOTE | 2021-02-01 13:36 | CT ---
EXAMINATION TYPE: CT abdomen pelvis w con DATE OF EXAM: 02/01/2021 COMPARISON: 05/13/2020 HISTORY: Follow up for prostate cancer. CT DLP: 1181 mGycm CONTRAST: CT scan of the abdomen and pelvis is performed with Oral Contrast and with IV Contrast, patient injec nay with 100ml mL of Isovue 300. FINDINGS: LUNG BASES-: No visible nodule. No infiltrate. Stable pleural thickening left lower lobe. All LIVER/GB: No calcified gallstones. No space occupying hepatic lesion. Biliary tree is of normal ca liber. PANCREAS: No inflammation. No distinct mass. SPLEEN: No splenic enlargement. No lesion seen. ADRENALS: Right adrenal adenoma is stable. No thickening. KIDNEYS/BLADDER: No hydronephrosis. No nephrolithiasis. No distinct renal mass. Urinary bladder g rossly unremarkable. BOWEL: Normal appendix. Normal bowel caliber. No inflammation. Severe sigmoid diverticulosis. Wall thickening noted of the sigmoid colon. Consider direct visualization to exclude neoplasm. GENITAL ORGANS: Prostate planes are intact. Glandular calcifications noted. LYMPH NODES: No greater than 1cm abdominal or pelvic lymph nodes are appreciated. AORTA: No significant abnormality. OSSEOUS STRUCTURES: Severe multilevel degenerative disc disease and spondylosis. OTHER: No significant additional abnormality is seen. IMPRESSION: 1. Severe sigmoid diverticulosis. Wall thickening noted of the sigmoid colon. Consider direct visuali zation to exclude neoplasm. 2. No evidence for prostate metastatic disease at this time.
--- NOTE | 2021-02-01 17:37 | NM ---
EXAMINATION TYPE: NM bone scan whole body DATE OF EXAM: 02/01/2021 COMPARISON: CT same date, CT 05/13/2020 HISTORY: Prostate cancer, C 61 Delayed whole-body scanning was performed following the injection of 25.6 mCi Tc 99m MDP. Images acq uired 3 hours post injection. FINDINGS: There is normal soft tissue uptake. Uptake within the feet, ankles, knees, shoulders, wrists and hand s, elbows, spine and sternoclavicular joints is likely degenerative. Uptake within the mandible is li zachary due to periodontal disease. There is some uptake seen within the mastoid region on the right. On axial image #[address] scan there is a sclerotic focus which is subcentimeter in size which may be new. IMPRESSION: No convincing metastatic uptake. Correlate for possible mastoiditis. Follow-up recommended for possib le left ilium sclerotic lesion.
== END | disposition home or self-care (01) ==
LOC: RADNMMAIN 10:54
PROVIDERS: ATTEND Urology
DX: C61 Malignant neoplasm of prostate (principal); K57.30 Diverticulosis of large intestine without perforation or abscess without bleeding
CPT/HCPCS: 82565; 84520; 74177; 36415; 78306; A9503; Q9967

== ENCOUNTER → 2021-03-01 | Outpatient (CLI) | payer MEDICARE ==
[2021-03-01 12:40] LABS: Basophils % (A) 1 %; Eosinophils # (A) 0.3 k/uL (0-0.7); Eosinophils % (A) 4 %; HCT 39.1 % (39.0-53.0); HGB 13.8 gm/dL (13.0-17.5); Lymphocytes # (A) 0.9 k/uL (1.0-4.8); Lymphocytes % (A) 14 %; MCH 32.8 pg (25.0-35.0); MCHC 35.3 g/dL (31.0-37.0); MCV 92.9 fL (80.0-100.0); Mean Platelet Volume 7.2; Monocytes # (A) 0.3 k/uL (0-1.0); Monocytes % (A) 5 %; Neutrophils # (A) 4.5 k/uL (1.3-7.7); Neutrophils % (A) 74 %; Platelet Count 185 k/uL (150-450); RBC 4.21 m/uL (4.30-5.90); RDW 13.7 % (11.5-15.5); WBC 6.1 k/uL (3.8-10.6)
[2021-03-01 12:49] LABS: African American GFR (CKD) >90 (>60 ml/min/1.73 sqM); Anion Gap 5 mmol/L; Blood Urea Nitrogen 22 mg/dL (9-20); Calcium 9.2 mg/dL (8.4-10.2); Carbon Dioxide 29 mmol/L (22-30); Chloride 104 mmol/L (98-107); Glucose 80 mg/dL (74-99); Non-African American GFR(CKD) 88 (>60 ml/min/1.73 sqM); Potassium 4.5 mmol/L (3.5-5.1); Sodium 138 mmol/L (137-145)
[2021-03-01 13:06] LABS: Appearance,Urine Clear (Clear); Bilirubin,Urine Negative (Negative); Blood,Urine Negative (Negative); Color,Urine Light Yellow; Glucose,Urine (UA) Negative (Negative); Ketones,Urine Negative (Negative); Leukocyte Esterase,Urine Negative (Negative); Nitrite,Urine Negative (Negative); Protein,Urine Negative (Negative); Specific Gravity,Urine 1.004 (1.001-1.035); Urobilinogen,Urine <2.0 mg/dL (<2.0)
== END | disposition home or self-care (01) ==
LOC: LABPAT 12:02
PROVIDERS: ATTEND Urology
DX: Z01.812 Encounter for preprocedural laboratory examination (principal); C61 Malignant neoplasm of prostate; N39.0 Urinary tract infection, site not specified
CPT/HCPCS: 80048; 81003; 85025; 87086

== ENCOUNTER → 2021-04-26 | Outpatient (CLI) | payer MEDICARE ==
[2021-04-26 15:51] LABS: African American GFR (CKD) 86.8 (60.0-200.0); Non-African American GFR(CKD) 74.9 (60.0-200.0)
[2021-04-26 16:18] LABS: Prostate Specific Antigen 10.4 ng/mL (0.0-6.5)
== END | disposition home or self-care (01) ==
LOC: LABWHC1 10:24
PROVIDERS: ATTEND Radiology Radiation Oncology
DX: C61 Malignant neoplasm of prostate (principal); Z87.891 Personal history of nicotine dependence
CPT/HCPCS: 36415; 82565; 84153; 84520

== ENCOUNTER → 2021-05-03 | Outpatient (CLI) | payer MEDICARE ==
[2021-05-03 12:04] LABS: African American GFR (CKD) >90 (>60 ml/min/1.73 sqM); Blood Urea Nitrogen 13 mg/dL (9-20); Non-African American GFR(CKD) 88 (>60 ml/min/1.73 sqM)
--- NOTE | 2021-05-03 13:48 | CT ---
EXAMINATION TYPE: CT abdomen pelvis wo/w con DATE OF EXAM: 05/03/2021 COMPARISON: 02/01/2021 HISTORY: History of prostate cancer. Elevated PSA. CT DLP: 1442.2 mGycm CONTRAST: CT scan of the abdomen and pelvis is performed with Oral Contrast and without and with IV Contrast, p atient injected with 100 mL of Isovue M300. FINDINGS: LUNG BASES-: No visible nodule. No infiltrate. LIVER/GB: No calcified gallstones. No space occupying hepatic lesion. Biliary tree is of normal ca liber. PANCREAS: No inflammation. No distinct mass. SPLEEN: No splenic enlargement. No lesion seen. ADRENALS: Stable adrenal nodularity. No thickening. KIDNEYS/BLADDER: No hydronephrosis. No nephrolithiasis. No distinct renal mass. Urinary bladder g rossly unremarkable. BOWEL: Normal appendix. Normal bowel caliber. No inflammation. Thickening of the sigmoid colon is n onspecific. GENITAL ORGANS: Prostate calcifications identified. LYMPH NODES: No greater than 1cm abdominal or pelvic lymph nodes are appreciated. AORTA: No significant abnormality. OSSEOUS STRUCTURES: Severe degenerative change lumbar spine OTHER: No significant additional abnormality is seen. IMPRESSION: 1. No evidence for metastatic disease at this time. 2. Nonspecific thickening of the sigmoid colon. 3. Stable adrenal nodularity.
== END | disposition home or self-care (01) ==
LOC: RADCTMAIN 11:20
PROVIDERS: ATTEND Radiology Radiation Oncology
DX: R97.20 Elevated prostate specific antigen [PSA] (principal); Z85.46 Personal history of malignant neoplasm of prostate
CPT/HCPCS: 82565; 84520; 74178; 36415; Q9967 ×2

== ENCOUNTER → 2021-09-08 | Outpatient (CLI) | payer MEDICARE ==
[2021-09-08 12:53] LABS: African American GFR (CKD) >90 (>60 ml/min/1.73 sqM); Blood Urea Nitrogen 17 mg/dL (9-20); Non-African American GFR(CKD) 83 (>60 ml/min/1.73 sqM)
--- NOTE | 2021-09-08 13:59 | CT ---
EXAMINATION TYPE: CT abdomen pelvis wo/w con DATE OF EXAM: 09/08/2021 COMPARISON: 05/03/2021 HISTORY: Prostate cancer. CONTRAST: CT scan of the abdomen and pelvis is performed with Oral Contrast and without and with IV Contrast, p atient injected with 100 mL of Isovue M300. FINDINGS: LUNG BASES-: No visible nodule. No infiltrate. LIVER/GB: No calcified gallstones. No space occupying hepatic lesion. Biliary tree is of normal ca liber. PANCREAS: No inflammation. No distinct mass. SPLEEN: No splenic enlargement. No lesion seen. ADRENALS: Right adrenal nodule is stable relative to the prior study of 05/03/2021. This likely reflec ts an adenoma. No thickening. KIDNEYS/BLADDER: No hydronephrosis. No nephrolithiasis. No distinct renal mass. Urinary bladder g rossly unremarkable. BOWEL: Normal appendix. Normal bowel caliber. No inflammation. Sigmoid diverticulosis without diver ticulitis. GENITAL ORGANS: No gross abnormality. LYMPH NODES: No greater than 1cm abdominal or pelvic lymph nodes are appreciated. AORTA: No significant abnormality. OSSEOUS STRUCTURES: Severe degenerative changes throughout the lumbar spine. OTHER: No significant a dditional abnormality is seen. IMPRESSION: 1. No evidence of metastatic disease.
== END | disposition home or self-care (01) ==
LOC: RADCTMAIN 11:20
PROVIDERS: ATTEND Radiology Radiation Oncology
DX: C61 Malignant neoplasm of prostate (principal)
CPT/HCPCS: 82565; 84520; 74178; 36415; Q9967 ×2

== ENCOUNTER → 2022-08-08 | Outpatient (CLI) | payer MEDICARE ==
[2022-08-08 16:28] LABS: African American GFR (CKD) >90 (>60 ml/min/1.73 sqM); Blood Urea Nitrogen 20 mg/dL (9-20); Non-African American GFR(CKD) 80 (>60 ml/min/1.73 sqM)
--- NOTE | 2022-08-08 22:28 | CT ---
EXAMINATION TYPE: CT abdomen pelvis w con CT DLP: 1344 mGycm, Automated exposure control for dose reduction was used. DATE OF EXAM: 08/08/2022 4:53 PM COMPARISON: CT abdomen pelvis most recent from 09/08/2021 CLINICAL INDICATION:Male, 72 years old with history of C61 MALIGNANT NEOPLASM OF PROSTATE; malignant neoplasm of prostate TECHNIQUE: Axial CT of the abdomen and pelvis. Sagittal and coronal reformats were created on a [employer] workstation. Contrast used:100cc mL of Isovue 300 with IV Contrast, Oral contrast used: without Oral Contrast FINDINGS: LOWER CHEST: Unremarkable ABDOMEN LIVER: Unremarkable GALLBLADDER AND BILE DUCTS: Unremarkable. PANCREAS: Unremarkable. SPLEEN: Unremarkable. 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 KIDNEYS AND URETERS: No evidence of hydronephrosis or renal calculus. The ureters are unremarkable. PELVIS BLADDER: Unremarkable REPRODUCTIVE: Unremarkable. ABDOMEN & PELVIS STOMACH AND BOWEL: No evidence of bowel obstruction. Scattered clonic diverticulosis. PERITONEUM: No evidence of pneumoperitoneum or free fluid. VASCULATURE: No evidence of aortic aneurysm. MUSCULOSKELETAL: No acute osseous abnormalities, moderate to severe multilevel disc degeneration mane ges of the spine noted. LYMPH NODES: Retroperitoneal lymph node at the level of the kidneys measures up to 9 mm in short axis which is minimally decreased from prior where it was 10 mm. SOFT TISSUE/ABDOMINAL WALL: Fatty changes to the inguinal canals laterally. Fat-containing tiny ingui nal hernia. IMPRESSION: No evidence for lymphadenopathy or suspicious bone lesion to suggest metastatic disease.
== END | disposition home or self-care (01) ==
LOC: RADCTMAIN 15:20
PROVIDERS: ATTEND Urology
DX: C61 Malignant neoplasm of prostate (principal)
CPT/HCPCS: 82565; 84520; 74177; 36415; Q9967

== ENCOUNTER → 2023-12-21 | Outpatient (CLI) | payer MEDICARE ==
--- NOTE | 2023-12-25 13:27 | PE ---
EXAMINATION TYPE: PET CT fusion skull to thigh DATE OF EXAM: 12/21/2023 COMPARISON: CT abdomen pelvis 08/08/2022 Prior PET/CT: No prior at this location. HISTORY: Prostate cancer TECHNIQUE: Following the intravenous administration of 5.46 mCi of gallium 28 PSMA, whole body image s are performed from the skull base to the midthigh. Images are reviewed on the computer in the sky nal, axial, and sagittal planes. Reconstructed rotating images are created on independent workstatio n and reviewed on the computer. A localization and attenuation correction CT is performed in conjun ction with the PET scan. DLP: 545.79 mGycm SCAN: Subsequent FINDINGS: NECK: No abnormal uptake. There is normal uptake within the salivary glands. THORAX: No abnormal uptake ABDOMEN: No abnormal uptake PELVIS: No abnormal uptake. Patient's prostate cancer is not discretely identified on this exam. OSSEOUS STRUCTURES: No abnormal uptake LOCALIZATION CT: There is a calcification in the lateral right lung base. COMPARISON: No pertinent changes identified. IMPRESSION: 1. No suspicious uptake to suggest metastatic prostate cancer
--- NOTE | 2023-12-25 13:53 | PE ---
EXAMINATION TYPE: PET CT fusion skull to thigh DATE OF EXAM: 12/25/2023 COMPARISON: CT abdomen pelvis 08/08/2022 Prior PET/CT: None at this location HISTORY: Prostate cancer TECHNIQUE: Following the intravenous administration of 5.46 mCi of gallium 28 PSMA, whole body images are performed from the skull base to the midthigh. Images are reviewed on the computer in the coronal, axial, and sagittal planes. Reconstructed rotating images are created on independent workstation and reviewed on the computer. A localization and attenuation correction CT is performed in conjunction with the PET scan. DLP: 545.79 mGycm SCAN: Subsequent FINDINGS: NECK: There is normal uptake within the salivary glands. No suspicious uptake. THORAX: There is a focus of radiotracer within the paraesophageal region adjacent to the aorta and esophagus. Image 91, SUV 25.49. Finding is suspicious for small metastatic lesion. ABDOMEN: There is intense activity within a retrocaval lymph node with an SUV of 64.8. Image 152. A small periaortic lymph node is at this level, image 156, SUV 43.27 a small lymph node may be adjacent to the aorta, image 157, SUV 11.58. Additional small lymph node is anterior and lateral to the aorta, image 161, SUV 12.01. A lymph node anterior to the inferior vena cava image 167 SUV of 22.99. Some activity appears to be within the ureter more so on the right. PELVIS: Activity may be within the left ureter mid pelvis. A lymph node could be considered, image 190, SUV 25.35. The patient's prostate cancer is not well-defined. There is some mild uptake within the left posterior inferior prostate, image 214, SUV 15.43. OSSEOUS STRUCTURES: No suspicious osseous uptake. LOCALIZATION CT: Right adrenal gland is thickened measuring 1.8 cm. Suspicious uptake is not identified. Scattered small periaortic and retrocaval lymph nodes are present. The largest correlates with the retrocaval abnormal lymph node which on this exam measures 1 cm. COMPARISON: Right adrenal gland appears stable. Adenopathy appears essentially stable. IMPRESSION: 1. Multiple scattered lymph nodes including periaortic, retrocaval lymph nodes within the abdomen, and paraesophageal within the thorax have elevated SUV levels suspicious for neoplastic process. MTDD
== END | disposition home or self-care (01) ==
LOC: RADPETMAIN 08:09
PROVIDERS: ATTEND Urology
DX: C61 Malignant neoplasm of prostate (principal)
CPT/HCPCS: 78815; A9596

== ENCOUNTER 2025-02-27 10:14 | Day surgery (SDC) | payer MEDICARE ==
[2025-02-26 11:00] VITALS: BMI 22.5
[2025-02-27 10:31] VITALS: TEMP 96.6
[2025-02-27] MEDS: IV FLUID CONTINUATION 1,000 ML IV ONE (10:46)
[2025-02-27] MEDS: LACTATED RINGERS 1,000 ML IV SCH (10:47)
[2025-02-27] MEDS ORDERED: PROPOFOL 10 MG/ML 20 ML VIAL IV ONE (11:37)
--- NOTE | 2025-02-27 11:59 | P.PCN ---
Date of Procedure: 02/27/25 Procedure(s) Performed: BRIEF HISTORY: Patient is a 75-year-old pleasant white male scheduled for an elective colonoscopy as a part of screening for colon cancer and family history of colon cancer. His mother was diagnosed with colon cancer at age 50. PROCEDURE PERFORMED: Colonoscopy with snare polypectomy PREOPERATIVE DIAGNOSIS: Screening for colon cancer and family history of colon cancer. IV sedation per Anesthesia. PROCEDURE: After informed consent was obtained, the patient, was brought into the endoscopy unit. IV sedation was administered by Anesthesia under continuous monitoring. Digital rectal examination was normal. Initially the Olympus CF-160 flexible video colonoscope was then inserted in the rectum, gradually advanced into the cecum without any difficulty. Careful examination was performed as the scope was gradually being withdrawn. Ileocecal valve and the appendiceal orifice were visualized and appeared normal. Prep was excellent. Mucosa of the cecum, ascending colon, transverse colon, descending colon appeared normal. In the sigmoid colon at 40 cm from the anal verge there was a 1 cm broad-based polyp removed by snare polypectomy. Moderate sigmoid diverticulosis seen. Rest of the, sigmoid colon, and rectum appeared normal. Retroflexion was performed in the rectum and no lesions were seen. The patient tolerated the procedure well. IMPRESSION: 1 centimeter broad-based sigmoid colon polyp status post snare polypectomy Moderate sigmoid diverticulosis RECOMMENDATIONS: Findings of this examination were discussed with the patient as well as his family. He was advised to follow-up with the biopsy results. If the biopsy reveals adenoma, recommended repeat colonoscopy in 3 years..
[2025-02-27 12:21] VITALS: BP 132/66; PULSE 67; RESP 14
== END 2025-02-27 12:40 | disposition home or self-care (01) ==
LOC: ORWHC2ENDO 10:14
PROVIDERS: ATTEND Internal Medicine Gastroenterology
DX: Z12.11 Encounter for screening for malignant neoplasm of colon (principal); D12.5 Benign neoplasm of sigmoid colon; K57.30 Diverticulosis of large intestine without perforation or abscess without bleeding; I10 Essential (primary) hypertension; E78.5 Hyperlipidemia, unspecified; I25.10 Atherosclerotic heart disease of native coronary artery without angina pectoris; F41.9 Anxiety disorder, unspecified; K21.9 Gastro-esophageal reflux disease without esophagitis; Z88.0 Allergy status to penicillin; Z80.0 Family history of malignant neoplasm of digestive organs; Z95.5 Presence of coronary angioplasty implant and graft; Z79.899 Other long term (current) drug therapy; Z79.82 Long term (current) use of aspirin
CPT/HCPCS: 88305; 45385; J2704